=== PATIENT | female | born 1985 | race Caucasian/White ===

== ENCOUNTER → 2017-02-13 | Outpatient (CLI) | payer MEDICAID | LOC: RAD 07:47 | PROVIDERS: ATTEND Internal Medicine | DX: R55 Syncope and collapse (principal) | CPT/HCPCS: 70450 ==

== ENCOUNTER 2017-07-04 11:16 | Emergency (ER) | payer MEDICAID ==
[2017-07-04] MEDS ORDERED: IBUPROFEN 800 MG TABLET PO ONE (11:59)
--- NOTE | 2017-07-04 12:56 | RADIOLOGY REPORT (SQ) ---
EXAM DESCRIPTION: FOOT RIGHT COMPLETE COMPLETED DATE/TIME: 07/04/2017 12:27 pm REASON FOR STUDY: rolled ankle, r foot/ankle pain COMPARISON: None. NUMBER OF VIEWS: Three views. TECHNIQUE: AP, lateral and oblique radiographic images acquired of the right foot. LIMITATIONS: None. FINDINGS: MINERALIZATION: Normal. BONES: No acute fracture or dislocation. No worrisome bone lesions. JOINTS: No effusions. SOFT TISSUES: No soft tissue swelling. No foreign body. OTHER: No other significant finding. IMPRESSION: NEGATIVE STUDY OF THE RIGHT FOOT. NO RADIOGRAPHIC EVIDENCE OF ACUTE INJURY. TECHNICAL DOCUMENTATION: JOB ID: [id number] [employer]- All Rights Reserved
--- NOTE | 2017-07-04 12:57 | RADIOLOGY REPORT (SQ) ---
EXAM DESCRIPTION: ANKLE RIGHT COMPLETE COMPLETED DATE/TIME: 07/04/2017 12:27 pm REASON FOR STUDY: rolled ankle, r foot/ankle pain COMPARISON: 03/20/2016 NUMBER OF VIEWS: Three views. TECHNIQUE: AP, lateral, and oblique radiographic images acquired of the right ankle. LIMITATIONS: None. FINDINGS: MINERALIZATION: Normal. BONES: No acute fracture or dislocation. No worrisome bone lesions. JOINTS: No effusions. SOFT TISSUES: No soft tissue swelling. No foreign body. OTHER: No other significant finding. IMPRESSION: NEGATIVE STUDY OF THE RIGHT ANKLE. NO RADIOGRAPHIC EVIDENCE OF ACUTE INJURY. TECHNICAL DOCUMENTATION: JOB ID: [id number] [employer]- All Rights Reserved
--- NOTE | 2017-07-04 13:19 | ER Document Report ---
HPI - HPI Patient complains to provider of: r foot injury, facial blisters Onset: Other - 4 days ago Onset/Duration: Persistent Quality of pain: Achy Pain Level: 3 Context: Patient presents stating that she slipped injuring her right ankle and foot 4 days ago. Patient complains of pain with weightbearing. Patient also complains of tender blisters to the lower lip and chin area that started 2 days ago. Associated Symptoms: Fever, Other Exacerbated by: Standing, Movement, Walking Relieved by: Denies Similar symptoms previously: No Recently seen / treated by doctor: No - ROS ROS below otherwise negative: Yes Systems Reviewed and Negative: Yes All other systems reviewed and negative - CONSTITUTIONAL Constitutional: DENIES: Fever, Chills - CARDIOVASCULAR Cardiovascular: DENIES: Chest pain - REPRODUCTIVE Reproductive: DENIES: : - MUSCULOSKELETAL Musculoskeletal: REPORTS: Extremity pain - DERM Skin Color: Normal, [place] Skin Problems: Blister Past Medical History - General Information source: Patient - Social History Smoking Status: Never Smoker Chew tobacco use (# tins/day): No Frequency of alcohol use: None Drug Abuse: None Occupation: [employer] attendant Lives with: Family Family History: Arthritis, CAD, CVA, DM, Hyperlipidemia, Hypertension, Malignancy, Thyroid Disfunction Patient has suicidal ideation: No Patient has homicidal ideation: No Neurological Medical History: Reports: Hx Migraine Renal/ Medical History: Reports: Hx Kidney Stones. Denies: Hx Peritoneal Dialysis GI Medical History: Reports: Hx Irritable Bowel, Hx Colonoscopy - 8ys Musculoskeltal Medical History: Reports Hx Arthritis, Reports Hx Musculoskeletal Deformity, Reports Hx Musculoskeletal Trauma Psychiatric Medical History: Reports: Hx Anxiety, Hx Bipolar Disorder, Hx Borderline Personality Disorder, Hx Depression, Hx Post Traumatic Stress Disorder, Hx Schizoaffective Disorder Traumatic Medical History: Reports: Hx Fractures - left knee Past Surgical History: Reports: Hx Orthopedic Surgery - left knee shattered knee - Immunizations Immunizations up to date: Yes Hx Diphtheria, Pertussis, Tetanus Vaccination: Yes - 2012 Vertical Provider Document - CONSTITUTIONAL Agree With Documented VS: Yes Exam Limitations: No Limitations General Appearance: WD/WN, No Apparent Distress - INFECTION CONTROL TRAVEL OUTSIDE OF THE [place] IN LAST 30 DAYS: No - HEENT HEENT: Atraumatic, Normocephalic Notes: Vesicular lesions to the vermilion border of lower lip and mental area - NECK Neck: Normal Inspection, Supple. negative: Lymphadenopathy-Left, Lymphadenopathy-Right - RESPIRATORY Respiratory: Breath Sounds Normal, No Respiratory Distress O2 Sat by Pulse Oximetry: 100 - CARDIOVASCULAR Cardiovascular: Regular Rate, Regular Rhythm Pulses: Normal: Dorsalis pedis - MUSCULOSKELETAL/EXTREMETIES Musculoskeletal/Extremeties: MAEW, FROM, Tender - Patient with right ankle tenderness over bilateral malleolar area and over navicular bone, No Edema. negative: Eccymosis - NEURO Level of Consciousness: Awake, Alert, Appropriate Motor/Sensory: No Motor Deficit, No Sensory Deficit - DERM Integumentary: Warm, Dry, No Rash Course - Vital Signs Vital signs: Temp Pulse Resp BP Pulse Ox 98.5 F 91 16 133/95 H 100 07/04/17 11:31 07/04/17 11:31 07/04/17 11:31 07/04/17 11:31 07/04/17 11:31 - Diagnostic Test Radiology reviewed: Image reviewed, Reports reviewed Procedures - Immobilization Right Ankle Pre-Proc Neuro Vasc Exam: Normal Immobilizer type: Ankle stirrup Performed by: PCT Post-Proc Neuro Vasc Exam: Normal Alignment checked and good: Yes Discharge - Discharge Clinical Impression: Herpes simplex Ankle sprain Qualifiers: Encounter type: initial encounter Involved ligament of ankle: unspecified ligament Laterality: right Qualified Code(s): S93.401A - Sprain of unspecified ligament of right ankle, initial encounter Foot sprain Qualifiers: Encounter type: initial encounter Laterality: right Qualified Code(s): S93.601A - Unspecified sprain of right foot, initial encounter Condition: Stable Disposition: HOME, SELF-CARE Instructions: Acyclovir ([facility]), Ankle Stirrup Splint ([facility]), Use of Crutches ([facility] ), Herpes Simplex ([facility]), Ice Packs ([facility]), Sprain ([facility]), Sprained Ankle ([facility]) Additional Instructions: Return immediately for any new or worsening symptoms Followup with your primary care provider, call tomorrow to make a followup appointment Weightbearing as tolerated Follow-up with orthopedic doctor for any continued pain or problems Prescriptions: Acyclovir [Zovirax 200 mg Capsule] 400 mg PO Q4H #70 capsule Naproxen [Naprosyn 250 Nmg Tablet] 1 tab PO BID #14 tablet Referrals: [facility] [Provider Group] - Follow up as needed
[2017-07-04 13:59] VITALS: BP 125/85
== END 2017-07-04 13:59 | disposition home or self-care (01) ==
LOC: ER 11:16
PROC: 2W3QX1Z Immobilization of Right Lower Leg using Splint (ICD-10-PCS; principal; 2017-07-04)
DX: S93.401A Sprain of unspecified ligament of right ankle, initial encounter (principal); S93.601A Unspecified sprain of right foot, initial encounter; S00.521A Blister (nonthermal) of lip, initial encounter; W01.0XXA Fall on same level from slipping, tripping and stumbling without subsequent striking against object, initial encounter
CPT/HCPCS: 99283; 73610; 73630; 29515; L4350; J3490

== ENCOUNTER 2018-06-29 08:19 | Emergency (ER) | payer MEDICAID ==
[2018-06-29] MEDS ORDERED: IBUPROFEN 800 MG TABLET PO ONE (09:18)
[2018-06-29] MEDS ORDERED: PENICILLIN V POTASSIUM 500 MG TABLET PO ONE (09:18)
--- NOTE | 2018-06-29 09:23 | ER Document Report ---
ED Oral Problem - General Chief Complaint: Toothache Stated Complaint: TOOTHACHE Time Seen by Provider: 06/29/18 09:10 Mode of Arrival: Ambulatory Information source: Patient Notes: 32-year-old female presents to ED for infected tooth that needs to be pulled and has pain keeping her from sleep. She states last night the pain got so bad she was throwing up. States she has been trying to get into the dentist for the last week because that is when the pain got bad but she cannot get in until after Saturday. She states that the tooth is been hurting for over a year off and on. Patient is alert and oriented respirations regular and unlabored speaking in full sentences. TRAVEL OUTSIDE OF THE [place] IN LAST 30 DAYS: No - HPI Patient complains to provider of: Toothache Onset: Other - Chronic for over a year worse for the last week Onset: Gradual Quality of pain: Sharp, Throbbing Severity: Severe Pain Level: 5 Associated symptoms: Toothache Worsened by: Heat Relieved by: Nothing Similar symptoms previously: Yes Recently seen / treated by doctor/dentist: No - Related Data Allergies/Adverse Reactions: hydrocodone Adverse Reaction (Verified 06/29/18 08:28) itching Past Medical History - General Information source: Patient - Social History Smoking Status: Never Smoker Cigarette use (# per day): No Chew tobacco use (# tins/day): No Smoking Education Provided: No Frequency of alcohol use: Occasional Drug Abuse: None Lives with: Spouse/Significant other Family History: Arthritis, CAD, CVA, DM, Hyperlipidemia, Hypertension, Malignancy, Thyroid Disfunction Patient has suicidal ideation: No Patient has homicidal ideation: No - Past Medical History Cardiac Medical History: Reports: None Pulmonary Medical History: Reports: None EENT Medical History: Reports: None Neurological Medical History: Reports: Hx Migraine Endocrine Medical History: Reports: None Renal/ Medical History: Reports: Hx Kidney Stones Malignancy Medical History: Reports: None GI Medical History: Reports: Hx Irritable Bowel, Hx Colonoscopy - 8ys Musculoskeletal Medical History: Reports Hx Arthritis, Reports Hx Musculoskeletal Deformity, Reports Hx Musculoskeletal Trauma Skin Medical History: Reports None Psychiatric Medical History: Reports: Hx Anxiety, Hx Bipolar Disorder, Hx Borderline Personality Disorder, Hx Depression, Hx Post Traumatic Stress Disorder, Hx Schizoaffective Disorder Traumatic Medical History: Reports: Hx Fractures - left knee Infectious Medical History: Reports: None Past Surgical History: Reports: Hx Orthopedic Surgery - left knee shattered knee - Immunizations Immunizations up to date: Yes Hx Diphtheria, Pertussis, Tetanus Vaccination: Yes - 2012 Review of Systems - Review of Systems Constitutional: No symptoms reported EENT: Mouth pain, Dental problem Cardiovascular: No symptoms reported Respiratory: No symptoms reported Gastrointestinal: No symptoms reported Genitourinary: No symptoms reported Female Genitourinary: No symptoms reported Musculoskeletal: No symptoms reported Skin: No symptoms reported Hematologic/Lymphatic: No symptoms reported Neurological/Psychological: No symptoms reported -: Yes All other systems reviewed and negative Physical Exam - Vital signs Vitals: Temp Pulse Resp BP Pulse Ox 97.6 F 78 18 131/106 H 100 06/29/18 08:31 06/29/18 08:31 06/29/18 08:31 06/29/18 08:06/29/18 08:31 Interpretation: Normal - General General appearance: Appears well, Alert - HEENT Head: Normocephalic, Atraumatic Eyes: Normal Pupils: PERRL Ears: Normal External canal: Normal Tympanic membrane: Normal Sinus: Normal Nasal: Normal Mouth/Lips: Caries Mucous membranes: Normal Teeth diagram: 1 - Most of the tooth broken off mild redness around the tooth Pharynx: Normal Neck: Normal - Respiratory Respiratory status: No respiratory distress Chest status: Nontender Breath sounds: Normal Chest palpation: Normal - Cardiovascular Rhythm: Regular Heart sounds: Normal auscultation Murmur: No - Abdominal Inspection: Normal Distension: No distension Bowel sounds: Normal Tenderness: Nontender Organomegaly: No organomegaly - Back Back: Normal, Nontender - Extremities General upper extremity: Normal inspection, Nontender, Normal color, Normal ROM , Normal temperature General lower extremity: Normal inspection, Nontender, Normal color, Normal ROM , Normal temperature, Normal weight bearing. No: Zac's sign - Neurological Neuro grossly intact: Yes Cognition: Normal Orientation: AAOx4 Anders Coma Scale Eye Opening: Spontaneous [place] Coma Scale Verbal: Oriented Anders Coma Scale Motor: Obeys Commands [place] Coma Scale Total: 15 Speech: Normal Motor strength normal: LUE, RUE, LLE, RLE Sensory: Normal - Psychological Associated symptoms: Normal affect, Normal mood - Skin Skin Temperature: Warm Skin Moisture: Dry Skin Color: Normal Course - Vital Signs Vital signs: Temp Pulse Resp BP Pulse Ox 98.3 F 62 17 139/86 H 99 06/29/18 09:22 18 09:22 06/29/18 09:22 06/29/18 09:22 06/29/18 09:22 Discharge - Discharge Clinical Impression: Pain due to dental caries Condition: Stable Disposition: HOME, SELF-CARE Additional Instructions: TOOTHACHE: Your pain is due to dental decay. The tooth must be repaired in order for you to feel better. You will, therefore, be referred to a dentist. We do not have dentists on the staff at [facility]. Severe swelling or drainage around a tooth usually means a dental abscess. This also requires evaluation and treatment by the dentist, but antibiotics may be prescribed while awaiting dental treatment. You should be rechecked immediately if you develop major swelling of the face, increasing pain, a lump in the jaw or gums, headache, difficulty swallowing, or fever. PENICILLIN V K: You have been given a prescription for Penicillin VK. Your physician has determined that this is the best antibiotic for your condition. Pen VK can be taken with meals, however more of the antibiotic gets into the bloodstream if it's taken on an empty stomach. Penicillin usually has no side effects. However, allergy to penicillins is common. If you have had an allergic reaction to any drug of the penicillin family, you should never take any other penicillin. Notify your doctor at once if you develop hives, itching, swelling, faintness, or shortness of breath. FOLLOW-UP CARE: You have been referred for follow-up care to the dentists listed below. Call the dentists office for an appointment as you were instructed or within the next two days. If you experience worsening or a significant change in your symptoms, notify the physician immediately or return to the Emergency Department at any time for re-evaluation. [facility] [address] Saturday mornings, by appointment [facility] [address] [place] [address] [facility] [address] [facility] [address] [email or web address] [address] [place] [address] Saturday- 8:00am to 5:00 pm Will see patients from other [facility]. Charges based on income and family size and accepts Medicare, Medicaid, and Insurances Will pull molars [facility] [id number] Hours of Operation 8:00 am - 4:30 pm weekdays The following dental offices accept Medicaid: [facility] Dr. Mei Dr. [place] Dr. Bullock Dr. Saha Delfino Talamantes [place], and [place] [facility] Dr. Coe ([place]) Dr. Martins ([place]) [facility] Drs. Bhakta ([place]) Dr. Davidson ([place]) [facility] Dr. Shook ([place]) Drs. Barros and ([place]) Medicaid Care Line Prescriptions: Ibuprofen 800 mg PO Q12HP PRN #14 tablet PRN Reason: Penicillin V Potassium [Penicillin Vk 500 mg Tablet] 500 mg PO BID #20 tablet Forms: Elevated Blood Pressure
[2018-06-29 09:24] VITALS: BP 139/86
[2018-06-29] MEDS ORDERED: ONDANSETRON HCL INJ/PF 4 MG/2 ML SDV IM ONE (09:39)
== END 2018-06-29 10:13 | disposition home or self-care (01) ==
LOC: ER 08:19
DX: K02.9 Dental caries, unspecified (principal); K08.89 Other specified disorders of teeth and supporting structures; R11.10 Vomiting, unspecified
CPT/HCPCS: 99283; 96372; J3490 ×2; J2405

== ENCOUNTER 2018-09-30 17:53 | Emergency (ER) | payer MEDICAID ==
--- NOTE | 2018-09-30 18:20 | ER Document Report ---
ED Medical Screen (RME) - General Chief Complaint: Urinary Problem Stated Complaint: DIZZY/URINARY ISSUE Time Seen by Provider: 09/30/18 18:12 Mode of Arrival: Ambulatory Information source: Patient, [facility] Records Notes: 33-year-old female presents with complaint of lower abdominal pain, dysuria, bilateral flank pain, dizziness that started 2 days prior to arrival. Patient does have a history of recurrent urinary tract infection and has had a kidney stone 1 year ago. Patient reports that both her urine and stools were black this morning. I have greeted and performed a rapid initial assessment of this patient. A comprehensive ED assessment and evaluation of the patient, analysis of test results and completion of medical decision making process we will be contacted by additional ED providers. PHYSICAL EXAMINATION: Vital signs reviewed-afebrile, normotensive GENERAL: Well-appearing, well-nourished and in no acute distress. LUNGS: No respiratory distress Musculoskeletal: Normal range of motion NEUROLOGICAL: Normal speech, normal gait. PSYCH: Normal mood, normal affect. SKIN: Warm, Dry, normal turgor, no rashes or lesions noted. TRAVEL OUTSIDE OF THE [place] IN LAST 30 DAYS: No - HPI Onset: Other Onset/Duration: Gradual, Persistent, Worse Quality of pain: Cramping, Throbbing Severity: Moderate Associated Symptoms: Dizzy/lightheaded, Nausea. denies: Vomiting Exacerbated by: Denies Relieved by: Denies Similar symptoms previously: Yes Recently seen / treated by doctor: No - Related Data Smoking: Non-smoker Frequency of alcohol use: None Drug Abuse: None Allergies/Adverse Reactions: hydrocodone Adverse Reaction (Verified 09/30/18 17:54) itching Past Medical History Neurological Medical History: Reports: Hx Migraine Renal/ Medical History: Reports: Hx Kidney Stones. Denies: Hx Peritoneal Dialysis GI Medical History: Reports: Hx Irritable Bowel, Hx Colonoscopy - 8ys Musculoskeltal Medical History: Reports Hx Arthritis, Reports Hx Musculoskeletal Deformity, Reports Hx Musculoskeletal Trauma Psychiatric Medical History: Reports: Hx Anxiety, Hx Bipolar Disorder, Hx Borderline Personality Disorder, Hx Depression, Hx Post Traumatic Stress Disorder, Hx Schizoaffective Disorder Traumatic Medical History: Reports: Hx Fractures - left knee Past Surgical History: Reports: Hx Orthopedic Surgery - left knee shattered knee - Immunizations Immunizations up to date: Yes Hx Diphtheria, Pertussis, Tetanus Vaccination: Yes - 2012 Physical Exam - Vital signs Vitals: Temp Pulse Resp BP Pulse Ox 98.7 F 86 20 113/85 100 09/30/18 18:05 09/30/18 18:05 09/30/18 18:05 09/30/18 18:05 09/30/18 18:05 Course - Vital Signs Vital signs: Temp Pulse Resp BP Pulse Ox 98.7 F 86 20 113/85 100 09/30/18 18:05 09/30/18 18:05 09/30/18 18:05 09/30/18 18:05 09/30/18 18:05
[2018-09-30 18:53] LABS: APPEARANCE,URINE SLIGHTLY-CLOUDY; BILIRUBIN,URINE NEGATIVE (NEGATIVE); COLOR,URINE YELLOW; GLUCOSE, URINE NEGATIVE (NEGATIVE); KETONES,URINE NEGATIVE (NEGATIVE); LEUKOCYTE ESTERASE,URINE NEGATIVE (NEGATIVE); NITRITE,URINE NEGATIVE (NEGATIVE); PROTEIN,URINE NEGATIVE (NEGATIVE); URINE SPECIFIC GRAVITY 1.015; UROBILINOGEN,URINE NEGATIVE mg/dL (<2.0)
[2018-09-30 18:58] LABS: ABSOLUTE EOSINOPHILS # (AUTO) 0.5 10^3/uL (0.0-0.6); ABSOLUTE LYMPHOCYTES (AUTO) 2.5 10^3/uL (0.5-4.7); ABSOLUTE MONOCYTES (AUTO) 0.6 10^3/uL (0.1-1.4); ABSOLUTE NEUT (AUTO) 8.8 10^3/uL (1.7-8.2); BASOPHILS % (AUTO) 0.3 % (0-2); EOSINOPHILS % (AUTO) 3.7 % (0-6); HEMATOCRIT 44.4 % (36.0-47.0); HEMOGLOBIN 14.8 g/dL (12.0-15.5); MEAN CORPUSCULAR HEMOGLOBIN 29.3 pg (27.0-33.4); MEAN CORPUSCULAR HGB CONC 33.4 g/dL (32.0-36.0); MEAN CORPUSCULAR VOLUME 88 fl (80-97); MONOCYTES % (AUTO) 5.2 % (3-13); PLATELET COUNT 242 10^3/uL (150-450); RED BLOOD COUNT 5.06 10^6/uL (3.72-5.28); RED CELL DISTRIBUTION WIDTH 12.8 % (11.5-14.0); SEGMENTED NEUTROPHILS % (AUTO) 70.8 % (42-78); TOTAL CELLS COUNTED % (AUTO) 100 %; WHITE BLOOD COUNT 12.4 10^3/uL (4.0-10.5)
[2018-09-30 19:08] LABS: ANION GAP 12 (5-19); BLOOD UREA NITROGEN 12 mg/dL (7-20); CALCIUM 9.8 mg/dL (8.4-10.2); CARBON DIOXIDE 24 mmol/L (22-30); CHLORIDE 106 mmol/L (98-107); GLUCOSE 97 mg/dL (75-110); POTASSIUM 4.3 mmol/L (3.6-5.0); SODIUM 141.7 mmol/L (137-145)
--- NOTE | 2018-09-30 19:44 | RADIOLOGY REPORT (SQ) ---
EXAM DESCRIPTION: [employer] COMPLETED DATE/TIME: 09/30/2018 7:29 pm REASON FOR STUDY: flank pain h/o stones COMPARISON: None. TECHNIQUE: Dynamic and static grayscale images acquired of the kidneys and bladder and recorded on P ACS. Additional selected color Doppler and spectral images recorded. LIMITATIONS: None. FINDINGS: RIGHT KIDNEY: Normal size. Normal echogenicity. No solid or suspicious masses. No h ydronephrosis. No calcifications. LEFT KIDNEY: Normal size. Normal echogenicity. No solid or suspicious masses. No hydronephrosi s. There is a small echogenic focus in the left kidney. No shadowing. This may represent focal fa t or small stone. BLADDER: No masses. OTHER FINDINGS: No other significant finding. IMPRESSION: Possible small nonobstructing left renal stone. No hydronephrosis. TECHNICAL DOCUMENTATION: JOB ID: [id number] [employer]- All Rights Reserved Reading location - IP/workstation name: [email or web address]
--- NOTE | 2018-09-30 21:22 | ER Document Report ---
ED General - General Chief Complaint: Urinary Problem Stated Complaint: DIZZY/URINARY ISSUE Time Seen by Provider: 09/30/18 18:12 Mode of Arrival: Ambulatory Notes: Patient is a 33-year-old female presenting to the emergency department complaining of dysuria for the last 3 days. Patient states she also has urinary hesitancy. Patient states she feels as though she has to urinate but cannot urinate. Patient states she is also nauseated and had diarrhea x2 today states when she had the diarrhea it was "black in nature." Patient denies any vaginal discharge, or vaginal itching. Patient states she has history of recurrent urinary tract infections and kidney stones. Patient states she does have bilateral flank pain and at times the pain makes her feel dizzy and nauseated. Patient states she is unsure of her last menstrual period but she does have a history of a tubal ligation. Past medical history: None medications: None Allergies: Hydrocodone TRAVEL OUTSIDE OF THE [place] IN LAST 30 DAYS: No - Related Data Allergies/Adverse Reactions: hydrocodone Adverse Reaction (Verified 09/30/18 17:54) itching Past Medical History - General Information source: Patient, [facility] Records - Social History Smoking Status: Never Smoker Frequency of alcohol use: None Drug Abuse: None Lives with: Family Family History: Arthritis, CAD, CVA, DM, Hyperlipidemia, Hypertension, Malignancy, Thyroid Disfunction Patient has suicidal ideation: No Patient has homicidal ideation: No Neurological Medical History: Reports: Hx Migraine Renal/ Medical History: Reports: Hx Kidney Stones. Denies: Hx Peritoneal Dialysis GI Medical History: Reports: Hx Irritable Bowel, Hx Colonoscopy - 8ys Musculoskeletal Medical History: Reports Hx Arthritis, Reports Hx Musculoskeletal Deformity, Reports Hx Musculoskeletal Trauma Psychiatric Medical History: Reports: Hx Anxiety, Hx Bipolar Disorder, Hx Borderline Personality Disorder, Hx Depression, Hx Post Traumatic Stress Disorder, Hx Schizoaffective Disorder Traumatic Medical History: Reports: Hx Fractures - left knee Past Surgical History: Reports: Hx Orthopedic Surgery - left knee shattered knee , Hx Tubal Ligation - Immunizations Immunizations up to date: Yes Hx Diphtheria, Pertussis, Tetanus Vaccination: Yes - 2012 Review of Systems - Review of Systems Constitutional: denies: Chills, Fever EENT: No symptoms reported Cardiovascular: See HPI Respiratory: See HPI Gastrointestinal: See HPI Genitourinary: See HPI Female Genitourinary: See HPI Musculoskeletal: No symptoms reported Skin: No symptoms reported Hematologic/Lymphatic: No symptoms reported Neurological/Psychological: No symptoms reported Physical Exam - Vital signs Vitals: Temp Pulse Resp BP Pulse Ox 98.7 F 86 20 113/85 100 09/30/18 18:05 09/30/18 18:05 09/30/18 18:05 09/30/18 18:05 09/30/18 18:05 - Notes Notes: GENERAL: Alert, interacts well. No acute distress. HEAD: Normocephalic, atraumatic. EYES: Pupils equal, round, and reactive to light. Extraocular movements intact. ENT: Oral mucosa moist, tongue midline. NECK: Full range of motion. Supple. Trachea midline. LUNGS: Clear to auscultation bilaterally, no wheezes, rales, or rhonchi. No respiratory distress. HEART: Regular rate and rhythm. No murmur ABDOMEN: Soft, non-tender. Non-distended. Bowel sounds present in all 4 quadrants. No McBurney's point tenderness, no Espinal sign EXTREMITIES: Moves all 4 extremities spontaneously. No edema, normal radial and dorsalis pedis pulses bilaterally. No cyanosis. BACK: no cervical, thoracic, lumbar midline tenderness. No saddle anesthesia, normal distal neurovascular exam. Mild CVA tenderness on the left. No CVA tenderness on the right. NEUROLOGICAL: Alert and oriented x3. Normal speech. cranial nerves II through XII grossly intact. PSYCH: Normal affect, normal mood. SKIN: Warm, dry, normal turgor. No rashes or lesions noted. Course - Re-evaluation Re-evalutation: 09/30/18 21:23 Discussed with patient lab results at bedside. Leukocytosis of 12.4, no signs of anemia or electrolyte abnormalities. She does have 1 RBC on urine. No other signs of infection on urine. Occult stool was negative for blood. Discussed potential vaginitis to be the cause of her dysuria. Patient wishes to deny a pelvic exam at this time. She denies any vaginal itching or discharge. States she will follow-up with her primary care provider and does not want for me to do a pelvic exam in the emergency room. Ultrasound shows a intrarenal stone on the left, not the cause of her pain the patient states last time she passed a kidney stone she had no blood in her urine so she is convinced that she has passed a kidney stone. Discussed at length at bedside need to follow-up with primary care provider and PERINATAL NURSE if she does not want us to do a pelvic exam in the emergency room. Patient states she still feels a little bit nauseated. I recommended taking more Zofran or potentially Phenergan. Patient wishes to deny at this time states she has Zofran at home that she can take. Post return precautions discussed 09/30/18 21:26 Nurse states she did a bedside bladder scan which revealed 70 cc, patient states she was able to give a urine sample in the emergency room. - Vital Signs Vital signs: Temp Pulse Resp BP Pulse Ox 98.7 F 70 20 125/94 H 100 09/30/18 18:05 09/30/18 20:16 09/30/18 18:05 09/30/18 20:16 09/30/18 18:05 - Laboratory Result Diagrams: 09/30/18 18:30 09/30/18 18:30 Laboratory results interpreted by me: 09/30/18 09/30/18 18:30 18:30 WBC 12.4 H Absolute Neutrophils 8.8 H Est GFR (Non-Af Amer) 55 L Discharge - Discharge Clinical Impression: Dysuria, Flank pain Condition: Stable Disposition: HOME, SELF-CARE Instructions: Flank Pain ([facility]) Additional Instructions: As we discussed you have been seen and treated in the emergency department for difficulty urinating and flank pain. I recommend that you follow-up with your primary care provider to get a pelvic exam. That will be able to rule out any other reason for your dysuria. Please take antinausea medication as prescribed. Please return to the emergency room for any other concerning symptoms.
[2018-09-30 21:59] VITALS: BP 131/80
== END 2018-09-30 21:59 | disposition home or self-care (01) ==
LOC: ER 17:53
DX: R30.0 Dysuria (principal); R10.9 Unspecified abdominal pain; N20.0 Calculus of kidney; R39.11 Hesitancy of micturition; R11.0 Nausea; R19.7 Diarrhea, unspecified; R19.5 Other fecal abnormalities; Z87.440 Personal history of urinary (tract) infections; Z87.442 Personal history of urinary calculi; Z98.51 Tubal ligation status; Z87.19 Personal history of other diseases of the digestive system; D72.829 Elevated white blood cell count, unspecified
CPT/HCPCS: 36415; 76775; 80048; 81001; 81025; 82272; 85025; 99284

== ENCOUNTER 2019-03-13 14:11 | Emergency (ER) | payer OTHER, MEDICAID ==
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
[2019-03-13] MEDS ORDERED: OXYCODONE-ACETAMINOPHEN 5-325 MG TABLET PO ONE (17:50)
[2019-03-13 18:51] VITALS: BP 145/90
== END 2019-03-13 18:30 | disposition home or self-care (01) ==
LOC: ER 14:11
DX: S82.142A Displaced bicondylar fracture of left tibia, initial encounter for closed fracture (principal); R51 Headache; M54.2 Cervicalgia; M25.552 Pain in left hip; M25.562 Pain in left knee; R20.0 Anesthesia of skin; V89.2XXA Person injured in unspecified motor-vehicle accident, traffic, initial encounter; Z88.6 Allergy status to analgesic agent; Z87.442 Personal history of urinary calculi; Z98.51 Tubal ligation status
CPT/HCPCS: 99284; 73502; 73564; 70450; 72125; 73700; L1830

== ENCOUNTER 2019-09-09 08:56 | Emergency (ER) | payer MEDICAID, OTHER ==
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
--- NOTE | 2019-09-09 10:13 | RADIOLOGY REPORT (SQ) ---
EXAM DESCRIPTION: KNEE LEFT 4 VIEW COMPLETED DATE/TIME: 09/09/2019 9:55 am REASON FOR STUDY: fall COMPARISON: None. NUMBER OF VIEWS: Four views. TECHNIQUE: AP, lateral, and both oblique radiographic images acquired of the left knee. LIMITATIONS: None. FINDINGS: MINERALIZATION: Normal. BONES: There is a chronic left lateral tibial plateau fracture. No acute fracture or dislocation. JOINT: No effusion. SOFT TISSUES: No soft tissue swelling. No radio-opaque foreign body. OTHER: No other significant finding. IMPRESSION: Old left lateral tibial plateau fracture. No acute findings. TECHNICAL DOCUMENTATION: JOB ID: [id number] [employer]- All Rights Reserved Reading location - IP/workstation name: [email or web address]
[2019-09-09 11:01] VITALS: BP 131/89
== END 2019-09-09 11:04 | disposition home or self-care (01) ==
LOC: ER 08:56
DX: S80.02XA Contusion of left knee, initial encounter (principal); M25.562 Pain in left knee; W19.XXXA Unspecified fall, initial encounter; I10 Essential (primary) hypertension
CPT/HCPCS: 73564; L1830; L3650